=== PATIENT | female | born 1995 | race Caucasian/White ===

== ENCOUNTER 2025-04-13 13:33 | Day surgery (SDC) | payer BC ==
[2025-04-13 14:04] VITALS: BMI 38.0
[2025-04-13] MEDS ORDERED: hydrALAZINE 20 MG/ML VIAL SLOW IVP PRN (14:29)
[2025-04-13 15:14] LABS: Protein, Urine Random Quant 12.0 mg/dL (1-14)
[2025-04-13 15:20] LABS: #Basophils 0.04 10x3/uL (0.0-0.2); #Eosinophils 0.17 10x3/uL (0.0-0.5); #Monocytes 0.66 10x3/uL (0.0-1.1); #Neutrophils 7.61 10x3/uL (1.5-8.4); %Basophils 0.4 % (0.0-2.0); %Eosinophils 1.6 % (0.0-6.0); %Lymphocytes 18.8 % (18.0-47.0); %Monocytes 6.2 % (0.0-10.0); %Neutrophils 71.7 % (40.0-75.0); Hematocrit 32.1 % (34.9-44.5); Hemoglobin 11.7 g/dL (12.0-15.5); Mean Corpuscular Hemoglobin 33.1 pg (27.0-33.0); Mean Corpuscular Volume 90.7 fL (81.6-98.3); Platelet Count 260 10x3/uL (150-450); Red Blood Cell (RBC) Count 3.54 10x6/uL (3.90-5.03); White Blood Cell (WBC) Count 10.61 10x3/uL (3.5-10.5)
[2025-04-13 15:38] LABS: ALT (SGPT) 9 U/L (Less than 34); AST (SGOT) 19 U/L (11-34); Albumin 3.0 g/dL (3.1-4.5); Alkaline Phosphatase 108 U/L (40-110); Anion Gap 14 mmol/L (10-20); BUN (Urea Nitrogen) 7 mg/dL (7.0-18.7); Bilirubin, Total 0.2 mg/dL (0.3-1.2); Calc. Creatinine Clearance 250 mL/min (70-130); Calcium 8.9 mg/dL (7.8-10.44); Carbon Dioxide 17 mmol/L (22-29); Chloride 109 mmol/L (98-107); Globulin 3.2 g/dL (2.4-3.5); Glucose 75 mg/dL (70-105); Potassium 2.9 mmol/L (3.5-5.1); Sodium 137 mmol/L (136-145)
== END 2025-04-13 16:16 | disposition home or self-care (01) ==
LOC: CSHLD/OP 13:33
PROVIDERS: ATTEND Family Medicine
DX: O99.891 Other specified diseases and conditions complicating pregnancy (principal); R03.0 Elevated blood-pressure reading, without diagnosis of hypertension; O99.213 Obesity complicating pregnancy, third trimester; Z3A.35 35 weeks gestation of pregnancy
CPT/HCPCS: 36415; 80053; 82570; 84156; 85025; 99284

== ENCOUNTER 2025-04-24 05:30 | Inpatient (IN) | payer BC ==
[2025-04-24 06:01] VITALS: BMI 38.0
[2025-04-24] MEDS ORDERED: Lidocaine 1% (PF) 30 ML VIAL SC PRN (06:50)
[2025-04-24] MEDS ORDERED: Ibuprofen 800 MG TAB PO PRN (06:50)
[2025-04-24] MEDS ORDERED: Diphenoxylate HCl/Atropine Tablet PO PRN ×2 (06:50)
[2025-04-24] MEDS ORDERED: Tranexamic Acid 1,000 MG/10 ML VIAL IVP PRN (06:50)
[2025-04-24] MEDS ORDERED: Carboprost 250 MCG/ML AMP IM PRN (06:50)
[2025-04-24] MEDS ORDERED: HYDROcodone/Acetaminophen 5/325 mg Tablet PO PRN ×2 (06:50)
[2025-04-24] MEDS ORDERED: hydrALAZINE 20 MG/ML VIAL SLOW IVP PRN (06:50)
[2025-04-24 06:59] LABS: Hematocrit 32.5 % (34.9-44.5); Hemoglobin 11.8 g/dL (12.0-15.5); Mean Corpuscular Hemoglobin 33.6 pg (27.0-33.0); Mean Corpuscular Volume 92.6 fL (81.6-98.3); Platelet Count 273 10x3/uL (150-450); Red Blood Cell (RBC) Count 3.51 10x6/uL (3.90-5.03); White Blood Cell (WBC) Count 10.18 10x3/uL (3.5-10.5)
[2025-04-24 07:10] LABS: ALT (SGPT) 11 U/L (Less than 34); AST (SGOT) 22 U/L (11-34); Albumin 2.9 g/dL (3.1-4.5); Alkaline Phosphatase 117 U/L (40-110); Anion Gap 16 mmol/L (10-20); BUN (Urea Nitrogen) 6 mg/dL (7.0-18.7); Bilirubin, Total 0.2 mg/dL (0.3-1.2); Calc. Creatinine Clearance 242 mL/min (70-130); Calcium 8.4 mg/dL (7.8-10.44); Carbon Dioxide 16 mmol/L (22-29); Chloride 110 mmol/L (98-107); Globulin 3.0 g/dL (2.4-3.5); Glucose 138 mg/dL (70-105); Potassium 3.6 mmol/L (3.5-5.1); Sodium 138 mmol/L (136-145)
[2025-04-24 07:28] LABS: Syphilis Antibody Index 0.05 S/CO (<1.00 Non-Reactive)
[2025-04-24 07:29] LABS: Hep B Surf Ag - L&D Non-Reactive S/CO (NonReactive)
[2025-04-24] MEDS: Oxytocin 30 units/NS 500 ML 500 ML IV SCH (11:22)
[2025-04-24] MEDS ORDERED: Bupivacaine 0.25% HCL 30 ML VIAL ONE (17:00)
[2025-04-24] MEDS ORDERED: Bupivacaine HCl 0.5%/Epinephrine 1:200,000/PF 30 ml Vial ONE (17:00)
[2025-04-24] MEDS: fentaNYL/Ropivacaine Epidural 100 ML ONE (21:04)
[2025-04-24] MEDS ORDERED: diphenhydrAMINE 50 MG/ML VIAL IVP PRN (21:08)
[2025-04-24] MEDS ORDERED: Ondansetron PF 4 MG/2 ML Vial IVP PRN (21:08)
[2025-04-24] MEDS ORDERED: Communication Order-Pharmacy FS SCH (21:15)
[2025-04-24] MEDS: Ondansetron PF 4 MG/2 ML Vial IVP PRN (21:24)
[2025-04-25] MEDS: Acetaminophen 325 MG TAB PO PRN (03:35)
[2025-04-25] MEDS: fentaNYL 2 mcg/Ropivacaine 0.2% Epidural 100 ML CADD EPIDURAL SCH (06:58)
[2025-04-25] MEDS ORDERED: Lanolin Ointment 7 GM TUBE TOP PRN (21:46)
[2025-04-25] MEDS ORDERED: Bisacodyl 10 MG SUPP PR PRN (21:46)
[2025-04-25] MEDS ORDERED: Ondansetron PF 4 MG/2 ML Vial IVP PRN (21:46)
[2025-04-25] MEDS ORDERED: Oxytocin 30 units/NS 500 ML 500 ML IV SCH (21:46)
[2025-04-25] MEDS ORDERED: Milk Of Magnesia 30 ML UDCUP PO PRN (21:46)
[2025-04-25] MEDS ORDERED: hydrALAZINE 20 MG/ML VIAL SLOW IVP PRN (21:46)
[2025-04-25] MEDS ORDERED: Benzocaine-Menthol 82.5 ML CAN TOP PRN (21:46)
[2025-04-25] MEDS ORDERED: HYDROcodone/Acetaminophen 5/325 mg Tablet PO PRN ×2 (21:46)
[2025-04-25] MEDS: Ibuprofen 800 MG TAB PO SCH (22:11)
[2025-04-25] MEDS: Lidocaine 1% (PF) 30 ML VIAL ONE (23:47)
[2025-04-26] MEDS: Ferrous Sulfate 325 MG TAB PO SCH (07:28)
[2025-04-26] MEDS: NIFEdipine XL 30 MG ER.TAB PO SCH (21:27)
[2025-04-27 12:19] VITALS: BP 152/93; TEMP 98.1
== END 2025-04-27 17:35 | disposition home or self-care (01) | DRG 807 ==
LOC: CSHLD 05:42 → CSHPP 04-25 23:24
PROVIDERS: ADMIT Obstetrics & Gynecology; ATTEND Obstetrics & Gynecology
PROC: 10E0XZZ Delivery of Products of Conception, External Approach (ICD-10-PCS; principal; 2025-04-24)
PROC: 0UQGXZZ Repair Vagina, External Approach (ICD-10-PCS; 2025-04-24)
PROC: 3E033VJ Introduction of Other Hormone into Peripheral Vein, Percutaneous Approach (ICD-10-PCS; 2025-04-24)
DX: O13.4 Gestational [pregnancy-induced] hypertension without significant proteinuria, complicating childbirth (principal); Z37.0 Single live birth; O69.81X0 Labor and delivery complicated by cord around neck, without compression, not applicable or unspecified; Z3A.37 37 weeks gestation of pregnancy
CPT/HCPCS: 36415; 51702; 80053; 85027; 86780; 86850; 86900; 86901; 87340; J0595; J0665; J2405; J2590; J3010